=== PATIENT | male | born 1970 | race Caucasian/White ===

== ENCOUNTER 2017-02-05 16:28 | Emergency (ER) | payer SELFPAY ==
[~2017-02-05] VITALS: Ht 172.7 cm; Wt 84.0 kg
[2017-02-05 16:32] VITALS: BP 103/68; PULSE 98; RESP 18; TEMP 97.8; O2SAT 99
[2017-02-05] MEDS ORDERED: HALO5TAB PO (16:47)
[2017-02-05] MEDS ORDERED: LITH300C2 PO (16:47)
--- NOTE | 2017-02-05 17:11 | PD ---
HPI Chief Complaint: Psychiatric Symptoms Time Seen by Provider: 16:46 Travel History International Travel<30 days: No Contact w/Intl Traveler<30days: No Traveled to known affect area: No History of Present Illness HPI Patient is a male who was brought to the emergency room in the name of Neal Gaines under a Alvarez's Act. As per EMS, patient was in the dressing room of [facility]'s department smearing his stool on the jolly of the dressing room. He was supposedly eating his stool as well. Patient reports that his name is Parth and he does take haldol and lithium. Patient refuses to provide further information. Denies si/hi at this time. PFSH Social History Tobacco Use: Yes Substance Use: Yes (K2 + Cocaine) Allergies-Medications (Allergen,Severity, Reaction): Coded Allergies: No Known Allergies (Unverified , 02/05/17) Reported Meds & Prescriptions Reported Meds & Active Scripts Active Reported [place] Carbonate 300 Mg Cap 300 Mg PO TID Haloperidol 5 Mg Tab 5 Mg PO BID Review of Systems General / Constitutional: No: Fever Eyes: No: Visual changes HENT: No: Headaches Cardiovascular: No: Chest Pain or Discomfort Respiratory: No: Shortness of Breath Gastrointestinal: No: Abdominal Pain Genitourinary: No: Dysuria Musculoskeletal: No: Pain Skin: No Rash Neurologic: No: Weakness Psychiatric: Positive: Mood Disorder, Substance Abuse, No: Depression Endocrine: No: Polydipsia Hematologic/Lymphatic: No: Easy Bruising Physical Exam Narrative GENERAL: nad, appears intoxicated SKIN: Focused skin assessment warm/dry. HEAD: Atraumatic. Normocephalic. ENT: No nasal bleeding or discharge. Mucous membranes pink and moist. NECK: Trachea midline. No JVD. CARDIOVASCULAR: Regular rate and rhythm. No murmur appreciated. RESPIRATORY: No accessory muscle use. Clear to auscultation. Breath sounds equal bilaterally. GASTROINTESTINAL: Abdomen soft, non-tender, nondistended. Hepatic and splenic margins not palpable. MUSCULOSKELETAL: No obvious deformities. No clubbing. No cyanosis. No edema. NEUROLOGICAL: Awake and alert. PSYCHIATRIC: patient appears intoxicated Data Data Last Documented VS Vital Signs Date Time Temp Pulse Resp B/P Pulse Ox O2 Delivery O2 Flow Rate FiO2 02/05/17 16:32 97.8 98 18 103/68 99 Orders Complete Blood Count With Diff (02/05/17 16:47) Comprehensive Metabolic Panel (02/05/17 16:47) Urinalysis - C+S If Indicated (02/05/17 16:47) Psych Screen (02/05/17 16:47) Drug Screen, Random Urine (02/05/17 16:47) Alcohol (Ethanol) (02/05/17 16:47) Salicylates (Aspirin) (02/05/17 16:47) Tylenol (Acetaminophen) (02/05/17 16:47) [place]pton (Li) (02/05/17 16:52) MDM Medical Decision Making Medical Screen Exam Complete: Yes Emergency Medical Condition: Yes Interpretation(s) Vital Signs Date Time Temp Pulse Resp B/P Pulse Ox O2 Delivery O2 Flow Rate FiO2 02/05/17 16:32 97.8 98 18 103/68 99 Differential Diagnosis Differential includes drug abuse, psychotic disorder, alcohol abuse, psychosis Narrative Course Patient was brought to ER by EMS under name Neal [employer]. He apparently is under the influence of K2 as well as cocaine and was found eating his feces and smearing it in the children's dressing room at a store today. patient was brought to ER under alvarez act. tox screens ordered. Patient will psychiatric evaluation after he is medically cleared Liza Almaguer DO Feb 05, 2017 17:10
[2017-02-05 17:46] LABS: AUTOMATED NEUTROPHIL # 4.8 TH/MM3 (1.8-7.7); BASOPHIL % 0.3 % (0.0-2.0); EOSINOPHIL # 0.2 TH/MM3 (0-0.4); EOSINOPHIL % 2.1 % (0.0-4.0); HEMATOCRIT 32.8 % (39.0-51.0); HEMO FLAGS DIFF FINAL; LYMPH % 23.6 % (9.0-44.0); LYMPHOCYTE # 1.7 TH/MM3 (1.0-4.8); MEAN CELL VOLUME 89.3 FL (80.0-100.0); MEAN CORPUSCULAR HEMOGLOBIN 30.1 PG (27.0-34.0); MEAN CORPUSCULAR HGB CONC 33.7 % (32.0-36.0); MONO % 6.8 % (0.0-8.0); NEUT % 67.2 % (16.0-70.0); PLATELET COUNT 222 TH/MM3 (150-450); RED BLOOD COUNT 3.68 MIL/MM3 (4.50-5.90); RED CELL DISTRIBUTION WIDTH 13.7 % (11.6-17.2); WHITE BLOOD COUNT 7.1 TH/MM3 (4.0-11.0)
[2017-02-05 18:06] LABS: ACETAMINOPHEN LESS THAN 2.0 MCG/ML (10.0-30.0); ALKALINE PHOSPHATASE 87 U/L (45-117); ALT (GPT) 35 U/L (12-78); ANION GAP 9 MEQ/L (5-15); AST (GOT) 33 U/L (15-37); BICARBONATE 25.1 MEQ/L (21.0-32.0); BLOOD UREA NITROGEN 20 MG/DL (7-18); CHLORIDE 109 MEQ/L (98-107); GLOMERULAR FILTRATION RATE 93 ML/MIN (>89); POTASSIUM 3.5 MEQ/L (3.5-5.1); SODIUM (NA) 143 MEQ/L (136-145); TOTAL BILIRUBIN ADULT 0.2 MG/DL (0.2-1.0)
[2017-02-06 03:29] VITALS: BP 110/81; PULSE 77; RESP 16; O2SAT 97
== END 2017-02-06 06:41 | disposition home or self-care (01) ==
LOC: NEPE 16:28 → EDBD 16:28 → NEPD 02-06 06:41
DX: F19.129 Other psychoactive substance abuse with intoxication, unspecified (principal); Z79.899 Other long term (current) drug therapy
CPT/HCPCS: 80053; 80178; 80307; 85025; 99284